=== PATIENT | female | born 1950 | race Caucasian/White ===

== ENCOUNTER 2021-04-23 09:54 | Outpatient (CLI) | payer MEDICARE, BC | END 2021-04-23 09:55 | disposition home or self-care (01) | LOC: CSHMAMMO 09:54 | PROVIDERS: ATTEND Obstetrics & Gynecology | DX: Z12.31 Encounter for screening mammogram for malignant neoplasm of breast (principal) | CPT/HCPCS: 77063; 77067 ==

== ENCOUNTER 2022-04-28 08:35 | Outpatient (CLI) | payer MEDICARE, BC | END 2022-04-28 08:36 | disposition home or self-care (01) | LOC: CSHMAMMO 08:35 | PROVIDERS: ATTEND Obstetrics & Gynecology | DX: Z12.31 Encounter for screening mammogram for malignant neoplasm of breast (principal) | CPT/HCPCS: 77063; 77067 ==

== ENCOUNTER 2023-04-29 09:08 | Outpatient (CLI) | payer MEDICARE | END 2023-04-29 09:09 | disposition home or self-care (01) | LOC: CSHMAMMO 09:08 | PROVIDERS: ATTEND Obstetrics & Gynecology | DX: Z12.31 Encounter for screening mammogram for malignant neoplasm of breast (principal) | CPT/HCPCS: 77063; 77067 ==